=== PATIENT | male | born 1955 | race Caucasian/White ===

== ENCOUNTER 2024-07-08 23:55 | Inpatient (IN) | payer MEDICARE, SELFPAY ==
[2024-07-08 16:20] VITALS: BMI 42.6
[2024-07-08 16:22] VITALS: BP 181/98
[2024-07-08 17:34] LABS: % Basophils 0.2 % (0-2); % Eosinophils 0.2 % (0-6); % Immature Granulocytes 0.7 % (0-0.5); % Lymphocytes 7.3 % (20.5-51.1); % Monocytes 3.3 % (1.7-9.3); % Neutrophils 88.3 % (42.2-75.2); Absolute Immature Granulocytes 0.1 10^3/uL (0-0.05); Absolute Lymphocytes 0.9 10^3/uL (1.2-3.4); Absolute Monocytes 0.4 10^3/uL (0.1-0.6); Absolute Neutrophils 10.7 10^3/uL (1.4-6.5); Hematocrit 49.3 % (39.0-52.0); Hemoglobin 16.3 g/dL (13.0-18.0); Mean Corp Hgb Conc. 33.1 g/dL (33.0-37.0); Mean Corpuscular Hgb 32.7 pg (27.0-31.0); Mean Platelet Volume 10.8 fL (7.4-10.4); Nucleated Red Blood Cells % 0 % (-); Platelet Count 268 10^3/uL (130-400); Red Blood Cell Count 4.98 10^6/uL (4.70-6.10); Red Cell Dist. Width 14.4 % (11.5-14.5); White Blood Cell Count 12.1 10^3/uL (4.8-10.8)
[2024-07-08 17:46] LABS: ALT (SGPT) 21 U/L (0-50); AST (SGOT) 29 U/L (17-59); Albumin 4.5 g/dl (3.5-5.0); Alkaline Phosphatase 110 U/L (38-126); Blood Urea Nitrogen 26 mg/dl (9-20); Calcium 9.6 mg/dl (8.4-10.2); Carbon Dioxide 28 mmol/L (22-30); Chloride 100 mmol/L (98-107); Glucose 159 mg/dl (70-99); Lipase 41 U/L (23-300); Potassium 3.5 mmol/L (3.5-5.1); Sodium 143 mmol/L (135-145); Total Protein 7.7 g/dl (6.3-8.2); eGFR > 60.00
[2024-07-08] MEDS: ZOFRAN 4 MG IV (18:32)
[2024-07-08] MEDS: MORPHINE SULFATE 4 MG IV (18:32)
[2024-07-08 18:43] VITALS: BP 182/88
[2024-07-08 18:57] LABS: Lactic Acid 1.3 mmol/L (0.7-2.0)
--- NOTE | 2024-07-08 19:54 | ED.GENMED ---
History of Present Illness
General
Chief Complaint: Abdominal Pain
Source: patient and significant other
Exam Limitations: none
Time Seen by Provider: 07/08/24 17:23
Nursing documentation reviewed up to this point in time: agreed with
History of Present Illness
History of Present Illness:
Patient is a 69-year-old male with past medical history of liver cancer status post resection with recent recurrence for which she is supposed to start radiation, atrial fibrillation, hypertension, hyperlipidemia, asthma, tobacco use, who presents
to the emergency department accompanied by his for evaluation of abdominal pain that started around 10 AM this morning. Patient reports that it has been constant and severe. Patient reports nausea and a few episodes of vomiting. Patient
reports that his abdomen looks larger than it does normally. Patient reports that his last bowel movement was yesterday and was normal. Patient reports that he has been passing flatus today. Patient denies recent fevers, chills, chest pain,
shortness of breath. Patient denies any dysuria, hematuria, urinary urgency or frequency. Patient reports that he has had pain like this in the past but never had it evaluated as it was always get better over a few hours. Patient reports taking
Tylenol this morning without improvement in his pain.
Past History
Past History
ED Past Medical History: Arrthythmia, Cancer, CHF, HTN and IDDM
ED Past Surgical History: Appendectomy, Cholecystectomy and Orthopedic
Social History
Tobacco: Former smoker
Alcohol: Former
Personal:
Living: with family
Employment: Employed
Review of Systems
Review of Systems
All Other Systems: Not applicable
Constitutional: Reports no symptoms
EENT: Reports no symptoms
Respiratory: Reports no symptoms
Cardiac: Reports no symptoms
ABD/GI: Reports abdominal pain, nausea and vomiting; Denies diarrhea or constipated
: Reports no symptoms
Musculoskeletal: Reports no symptoms
Skin: Reports no symptoms
Neurological: Reports no symptoms
Endocrine: Reports no symptoms
Hematologic/Lymphatic: Reports no symptoms
Psychiatric: Reports no symptoms
Phy Exam
General Physical Exam
General Presentation: well appearing and no apparent distress
General Skin: warm and dry
General Habitus: normal
General Mental: alert
General Hydration: appears well hydrated
ENT Exam
ENT Exam: EOMI, pharynx normal, neck supple and normocephalic
Eye Exam
Eye Exam: PERRL, cornea clear and conjunctiva normal
Cardiovascular Exam
Cardiovascular Exam: regular rate/rhythm, no edema, no murmur and normal peripheral pulses
Pulmonary Exam
Pulmonary Exam: lungs clear, no respiratory distress, no rales, no crackles, no rhonchi, no stridor, no wheezing and no cough
Gastrointestinal Exam
Gastrointestinal Exam: soft, distended, surgical scar and tender (just superior to the umbilicus)
Auscultation of Abdomen: hypoactive
Neurological Exam
Neurological Exam: alert, oriented x3, no motor deficits and speech normal
Musculoskeletal Exam
Musculoskeletal Exam: full ROM and no edema
Skin Exam
Skin Exam: normal color, warm/dry, no rash and no petechia
Psychiatric Exam
Psychiatric Exam: normal mood/affect
Course
Orders/Labs/Results
Orders:
Orders
07/08/24 17:13
Complete Blood Count/With Diff Urgent
Comprehensive Metabolic Panel Urgent
Lipase Urgent
07/08/24 18:20
CT Abd/pelvis W Iv Cont Urgent
Comment:
Reason For Exam: abdominal pain, distention, liver cancer
Morphine Sulfate 4 mg IV NOW STA
Ondansetron Injectable [Zofran] 4 mg IV NOW STA
07/08/24 18:21
CR Chest - 2 Views Urgent
Comment:
Reason For Exam: cough
07/08/24 18:31
Lactic Acid Urgent
07/08/24 21:02
HYDROmorphone [Dilaudid] 1 mg IV NOW STA
07/08/24 23:17
CefTRIAXone [Rocephin] 1,000 mg IV NOW STA
MetroNIDAZOLE [Flagyl] 500 mg PO NOW STA
Abnormal Lab Results
07/08/24
17:13
WBC 12.1 H 10^3/uL
(4.8-10.8)
MCV 99.0 H fL
(80.0-94.0)
MCH 32.7 H pg
(27.0-31.0)
MPV 10.8 H fL
(7.4-10.4)
Abs Immat Gran (auto) 0.1 H 10^3/uL
(0-0.05)
Absolute Neuts (auto) 10.7 H 10^3/uL
(1.4-6.5)
Absolute Lymphs (auto) 0.9 L 10^3/uL
(1.2-3.4)
Immature Gran % 0.7 H %
(0-0.5)
Neutrophils % 88.3 H %
(42.2-75.2)
Lymphocytes % 7.3 L %
(20.5-51.1)
BUN 26 H mg/dl
(9-20)
Glucose 159 H mg/dl
(70-99)
07/08/24 17:13
07/08/24 17:13
Vital Signs
Initial and Last Documented VS:
Initial Vital Signs
Temp Pulse Resp BP Pulse Ox
97.2 F 60 20 181/98 96
07/08/24 16:22 07/08/24 16:22 07/08/24 16:22 07/08/24 16:22 07/08/24 16:22
Last Documented Vital Signs
Temp Pulse Resp BP Pulse Ox
97.2 F 79 22 200/115 93
07/08/24 16:22 07/08/24 20:00 07/08/24 20:00 07/08/24 20:00 07/08/24 20:00
*Critical Care Note
Total Time (30-74mins, 75-104mins- exclusive of procedures): Not Applicable
Update Note
Update Note:
9-year-old male with history of liver CA status post resection but with known recurrence who presents to the emergency department for evaluation of abdominal pain and distention that started this morning and has not improved. Patient notes
associated nausea and vomiting but denies change in his bowel habits. On arrival, patient is hypertensive, afebrile. On exam, patient is in no acute distress, he does have an area of distention and tenderness just superior to the umbilicus
concerning for a possible hernia. Labs were performed while the patient was in the waiting room and are nonactionable. Given the patient's history and presentation, will check CT of the abdomen and pelvis with IV contrast. Will provide the
patient with analgesia, antiemetics, and reassess.
CT notable for hernia without evidence of incarceration or strangulation. However, note made of bowel wall thickening of 21cm segment of probable proximal ileum. Differential diagnosis includes inflammation, infection, and less likely ischemia.
Given normal lactic acid, less likely ischemia. All results were discussed with the patient who would like to go home. However, patient got up to ambulate to the restroom and his pain returned, therefore, he agrees to admission. Will cover with
Rocephin and Flagyl and admit. Patient and his expressed understanding and agreed.
ED Attending Note
-
Portions of this chart may have been created with voice recognition software.� Occasional wrong word or��sound alike� substitutions may have occurred due to the inherent limitations of voice recognition software.
Discharge Plan
Departure
Patient Disposition: Admit
Date of Disposition: 07/08/24
Time of Disposition: 23:18
Presentation/result/management discussed w/ accepting MD/DO: Hospitalist
Patient with high blood pressure during this ER visit?: Yes
Condition: Good
Covid-19: Not Applicable
Discharge Problem:
Ileitis, regional
Prescriptions:
No Action
B-complex with vitamin C 1 CAPLET tablet
1 cap PO DAILY
isosorbide mononitrate 30 mg tablet extended release 24 hr
30 mg PO DAILY
levothyroxine 200 mcg tablet
200 mcg PO DAILY
furosemide 80 MG tablet
80 mg PO BID
folic acid 1 mg Tablet
1 mg PO DAILY
fluticasone propionate 50 mcg/actuation [place],Suspension
1 spray INTRANASAL DAILY
hydralazine 25 mg Tablet
25 mg PO TID
insulin asp prt-insulin aspart [Novolog Mix 70-30FlexPen U-100] 100 unit/mL (70-30) insulin pen
36 unit SC BID
fluticasone propion-salmeterol [Advair Diskus] 250-50 mcg/dose Blister With Device
2 inh INHALATION R BID
acetaminophen [Tylenol] 325 mg Tablet
650 mg PO Q6HPRN PRN (Reason: mild pain)
albuterol sulfate [ProAir HFA] 90 mcg/actuation Hfa Aerosol Inhaler
2 puff INHALATION R Q6HPRN PRN (Reason: sob)
lisinopril 40 mg Tablet
40 mg PO BID
Eliquis 5 mg Tablet
2.5 mg PO BID
Rx Instructions:
07/17/23-patient said he cutshis 5mg tablets in half cause he skin bleeds too much
prednisone 20 mg Tablet
40 mg PO DAILY 3 Days Qty: 6 0RF
metolazone 5 mg Tablet
5 mg PO DAILY Qty: 90 0RF
potassium chloride 20 mEq tablet,ER particles/crystals
40 meq PO BID Qty: 120 0RF
carvedilol 25 mg tablet
12.5 mg PO BID Qty: 0 0RF
ipratropium-albuterol 0.5 mg-3 mg(2.5 mg base)/3 mL Solution For Nebulization
3 ml inhalation R TID Qty: 90 0RF
colchicine 0.6 mg tablet
0.6 mg PO BID Qty: 14 0RF
hydrocodone-acetaminophen 5-300 mg tablet
1 tab PO Q6H PRN (Reason: Pain) Qty: 14 0RF
gabapentin 100 mg capsule
100 mg PO TID Qty: 20 0RF
doxycycline hyclate 100 mg capsule
100 mg PO BID 10 Days Qty: 20 0RF
Referrals:
Russell Nunez PA-C [Family Provider] -
Interventions
Interventions:
*General Assessment Last Done: 07/08/24 16:22
ED- Fall Risk Assessment Last Done: 07/08/24 16:28
BF-Ixpuxr-Dgzjrkwmxx Assessment Last Done: 07/08/24 16:28
Discharge Date and Time
Print Language: MALTESE
[2024-07-08 20:00] VITALS: BP 200/115
[2024-07-08] MEDS: DILAUDID 1 MG IV (21:07)
[2024-07-08] MEDS: FLAGYL 500 MG PO (23:51)
[2024-07-08] MEDS: ROCEPHIN 1000 MG IV (23:51)
--- NOTE | 2024-07-08 23:52 | HPS.HSE ---
Family Physician
-
Family Physician: BLAKE ARDON PA-C
Chief Complaint
-
Abdominal pain and vomiting
History of Present Illness
This is a 69-year-old with past medical history of hepatocellular carcinoma status post liver resection and chemotherapy last in 2022 who recently has recurrence of disease and is pending radiation treatment, atrial fibrillation on anticoagulation,
COPD, CHF, cor pulmonale, insulin-dependent diabetesdiabetes and hypothyroidism who presents to the emergency department with acute episode of right lower quadrant pain.
Patient reports sudden onset of sharp and colicky right lower quadrant pain without any radiation. When he attempted to take p.o. (i.e. he tried to take twice daily to expectation of gas relief) he resulted in immediate emesis. He has been having
emesis with any attempted p.o. intake since then. Patient reported that he had a similar episode of pain about 2 weeks ago which apparently resolved on its own. He reports having intermittent loose stools. He has no stool today. He denies of
tarik diarrhea. He denies fevers or chills. He has a history of cholecystitis and feels this pain reminds him of that. He denies any urinary symptoms. He denies history of bowel obstruction.
He Emergency Department the patient was afebrile, he was hemodynamically stable and in distress due to pain. A had a clear chest x-ray. He had a CT of the abdomen and pelvis which showed circumferential wall thickening in the loop of proximal
small bowel that was 20 cm long. There was a ventral hernia without incarceration.
He had a leukocytosis of 12,000, hemoglobin and platelet counts are within normal limits. Chemistries are within normal limits. LFTs and lipase were within normal limits.
Medical History
Past Medical History
Past Medical History: Reports Arrhythmia (Atrial fibrillation), CHF, COPD, HTN and IDDM
Additional Past Medical History:
Hepatocellular cancer status post surgery and chemo
Past Surgical History: Reports Other
Additional Past Surgical History:
Liver resection
Social History
Tobacco: Former Smoker
Alcohol: Former
Drug: None
Personal:
Living: With Family
Family History
Family History: Not pertinent
Allergies / Home Medications
Allergies reflects when Allergies were last updated in [facility].
Home Medications with original date entered in [facility]
Allergy/Medication List:
Allergies
Allergy/AdvReac Type Severity Reaction Status Date / Time
No Known Allergies Allergy Verified 07/08/24 16:21
Home Medications
furosemide 80 mg tablet 80 mg PO BID Fluid Retention/Swelling 01/17/23
isosorbide mononitrate 30 mg tablet,extended release 24 hr 30 mg PO DAILY Blood Pressure 01/17/23
levothyroxine 200 mcg tablet 200 mcg PO DAILY Thyroid 01/17/23
apixaban 5 mg tablet (Eliquis) 5 mg PO BID atrial fibrillation 07/17/23
fluticasone 250 mcg-salmeterol 50 mcg/dose blistr powdr for inhalation (Advair Diskus) 2 inh inhalation R BIDPRN PRN sob/wheezing 07/17/23
lisinopril 40 mg tablet 40 mg PO BID Blood Pressure 07/17/23
carvedilol 25 mg tablet 12.5 mg (1/2 x 25 mg) PO BID Blood Pressure #0 tabs 07/21/23
albuterol sulfate 90 mcg/actuation aerosol inhaler 2 puff inhalation R Q6HPRN PRN sob/wheezing 07/08/24
insulin glargine 100 unit/mL (3 mL) subcutaneous pen (Lantus Solostar U-100 Insulin) 38 unit SC HS 07/08/24
ipratropium 0.5 mg-albuterol 3 mg (2.5 mg base)/3 mL nebulization soln 3 ml inhalation R TIDPRN PRN sob/wheezing 07/08/24
Review of Systems
-
Constitutional: Reports No Symptoms
EENT: Reports No Symptoms
Respiratory: Reports No Symptoms
Cardiac: Reports No Symptoms
Abdomen/GI: Reports Abdominal Pain and Vomiting
: Reports No Symptoms
Musculoskeletal: Reports No Symptoms
Skin: Reports No Symptoms
Neurological: Reports No Symptoms
Endocrine: Reports No Symptoms
Hematologic/Lymphatic: Reports No Symptoms
Psych: Reports No Symptoms
Physical Exam
Vital Signs
Vital Signs
Temp Pulse Resp BP Pulse Ox
97.2 F 79 22 200/115 93
07/08/24 16:22 07/08/24 20:00 07/08/24 20:00 07/08/24 20:00 07/08/24 20:00
Physical Exam
General: Conversant, Appears in Distress and Appears Chronically Ill
HEENT: NormoCephalic, Anicteric, Moist mucous membranes and Atraumatic
Respiratory: Clear
Cardiac: S1/S2 and Irregular Rhythm
GI: Soft and Tender (Data formation right lower quadrant)
Rectal: Deferred by Provider
Genito-urinary: Deferred by me
Musculoskeletal: No Clubbing, No Cyanosis, Edema, Left Lower Extremity (trace) and Edema, Right Lower Extremity (trace)
Skin: Warm
Neuro: AO x 3
Hematologic/Lymphatic: No Lymphadenopathy
Psych: Calm
Laboratory Results
-
07/08/24 17:13
07/08/24 17:13
Laboratory Results
Lactic Acid 1.3 mmol/L (0.7-2.0) 07/08/24 18:31
Total Bilirubin 1.0 mg/dl (0.2-1.3) 07/08/24 17:13
AST 29 U/L (17-59) 07/08/24 17:13
ALT 21 U/L (0-50) 07/08/24 17:13
Alkaline Phosphatase 110 U/L (38-126) 07/08/24 17:13
Lipase 41 U/L (23-300) 07/08/24 17:13
Data Reviewed
-
Diagnostic Radiology: Image Personally Visualized and interpreted
CT Scan: Report Reviewed by me
Lab Data: Labs Reviewed by me
Old Records: Reviewed
Impression/Plan
-
IMPRESSION:
69-year-old with multiple comorbidities who is here for abdominal pain and was found to have inflammatory changes in the proximal ileum consistent with likely infectious or ischemic process. No obstruction
PLAN:
1. Ileitis - Presumed inflammatory or ischemic etiology. Denies recent chemotherapy for HCC. Non-toxic appearing and hemodynamically stable. Leukocytosis and moderate to severe pain with vomiting. No obstruction on CT.
- admit to med/surg
- NPO for now except sips of meds and water, advance diet as tolerated after GI consult
- IV ceftriaxone/flagyl
- hold fluids
- pain control and antiemetics
- gi consult
2. DM II
- hold lantus while npo
- sliding scale insulin q 6
3. AFIb
- continue apixaban and carvedilol
4. CHF
- continue lasix for now, monitor bp
- continue imdur, lisinopril
- weight daily
6. COPD - stable
- continu ehome inhalers
7. hypothyroid
- continue home levothyroxine
DDVT PPx - on apixaban
Code statu s- Full Code
[2024-07-09] VITALS: BP 144/102
[2024-07-09] MEDS: DILAUDID 1 MG IV ×4 (00:05→20:25)
[2024-07-09 01:00] VITALS: BP 167/87
[2024-07-09 01:32] VITALS: BP 167/99; BMI 41.9
[2024-07-09 01:43] VITALS: BMI 41.9
[2024-07-09] MEDS: LASIX PO (01:49)
[2024-07-09] MEDS: COREG 12.5 MG PO ×3 (01:56→20:00)
[2024-07-09] MEDS: ELIQUIS 5 MG PO ×3 (01:57→20:01)
[2024-07-09] MEDS: ZESTRIL 40 MG PO ×3 (01:57→20:00)
--- NOTE | 2024-07-09 02:40 | PTCARENOTE ---
Received pt from ED into room 213. Pt able to stand and ambulate with stand by assist. Reporting 8/10 pain throughout abdomen. Round, obese, distended, tender abdomen. AAOx3. VSS. See assessment. Resting comfortably in bed, call dumont within reach.
[2024-07-09] MEDS: DILAUDID 0.5 MG IV ×3 (02:43→09:34)
[2024-07-09 05:43] LABS: Glucose - Point of Care 147 mg/dl (70-99)
[2024-07-09 06:00] VITALS: BMI 41.9
[2024-07-09] MEDS: SYNTHROID 200 MCG PO (06:02)
[2024-07-09 06:48] LABS: Hematocrit 51.5 % (39.0-52.0); Mean Platelet Volume 10.7 fL (7.4-10.4); Platelet Count 247 10^3/uL (130-400); Red Blood Cell Count 5.15 10^6/uL (4.70-6.10); Red Cell Dist. Width 14.5 % (11.5-14.5); White Blood Cell Count 15.3 10^3/uL (4.8-10.8)
[2024-07-09 07:20] LABS: Blood Urea Nitrogen 30 mg/dl (9-20); Calcium 9.6 mg/dl (8.4-10.2); Carbon Dioxide 30 mmol/L (22-30); Chloride 102 mmol/L (98-107); Estimated Creatinine Clearance 99 ml/min; Glucose 147 mg/dl (70-99); Potassium 3.7 mmol/L (3.5-5.1); Sodium 143 mmol/L (135-145); eGFR > 60.00
--- NOTE | 2024-07-09 07:38 | W.PN.HOSP.TC ---
Today's Communication/Plan
-
gentle IV hydration support
NGT as per GI surgery
pain control
hold lasix while NPO
Assessment / Plan
Assessment / Plan
Physical Exam
General: Conversant, Appears in Distress and Appears Chronically Ill
HEENT: NormoCephalic, Anicteric, Moist mucous membranes and Atraumatic
Respiratory: Clear
Cardiac: S1/S2 and Irregular Rhythm
GI: Soft and Tender
Musculoskeletal: No Clubbing, No Cyanosis, Edema, Left Lower Extremity (trace) and Edema, Right Lower Extremity (trace)
Skin: Warm
Neuro: AO x 3
Hematologic/Lymphatic: No Lymphadenopathy
Psych: Calm
69-year-old with multiple comorbidities who is here for abdominal pain and was found to have inflammatory changes in the proximal ileum consistent with likely infectious or ischemic process. No obstruction
PLAN:
1. Ileitis - Presumed inflammatory or ischemic etiology. Denies recent chemotherapy for HCC. Non-toxic appearing and hemodynamically stable. Leukocytosis and moderate to severe pain with vomiting. No obstruction on CT.
Possibly related to hernia
- NPO
-GI Surgery evals appreciated
- IV ceftriaxone/flagyl
- gentle IV hydration
-NGT
- pain control and antiemetics
2. DM II
- hold lantus while npo
- sliding scale insulin q 6
3. AFIb
- continue apixaban and carvedilol
4. CHF
- hold Lasix while NPO, gentle IV hydration
- continue imdur, lisinopril
- weight daily
6. COPD - stable
- continu ehome inhalers
7. hypothyroid
- continue home levothyroxine
DDVT PPx - on apixaban
Code statu s- Full Code
I spent a total of 50 minutes with the patient or on the floor. More than 50% of this time involved counseling and coordination of care.
Anticipated Discharge: > 48 hours
Subjective/Interval History
-
Date of Service: July 09, 2024
pain controlled at this time. Continues to report epigastric tenderness. NGT in place with bilious output noted.
Objective Data
-
Labs:
Laboratory Results
07/09/24
05:50
WBC 15.3 H
Hgb 17.0
Hct 51.5
Plt Count 247
Sodium 143
Potassium 3.7
Chloride 102
Carbon Dioxide 30
BUN 30 H
Creatinine 0.9
Glucose 147 H
Calcium 9.6
Vital Signs:
Vital Signs
Temp Pulse Resp BP Pulse Ox
98.7 F 84 22 167/99 95
07/09/24 01:32 07/09/24 01:57 07/09/24 01:32 07/09/24 01:57 07/09/24 05:50
[2024-07-09 07:40] VITALS: BP 150/90
[2024-07-09] MEDS: IMDUR (EXTENDED RELEASE) 30 MG PO (09:04)
[2024-07-09] MEDS: LASIX 80 MG PO (09:04)
[2024-07-09] MEDS: FLAGYL 500 MG PO ×2 (09:04→16:22)
--- NOTE | 2024-07-09 09:10 | CON.GI ---
Addendum entered and electronically signed by Madelaine Washington Do, MD 07/09/24 11:18:
I saw and examined the patient.
The PARTS SPECIALIST's note was reviewed and I agree with the note.
Comment: Ok is a 69yo M with h/o cirrhosis complicated by HCC s/p resection 2019 followed by chemo at [place] who was admitted for abd pain. GI consulted. Pain is acute with vomiting. Vitals reviewed exam notable for large surgical scar and
hernia. Labs reviewed Imaging with air fluid level in small bowel and small bowel thickening with large loops of bowel into abd hernia.
Impression
- Acute abd pain with N/V
Suspect related to small bowel in large abd hernia/pannus
- Cirrhosis
- H/o HCC s/p resection and chemo
- Obesity
- Afib on eliquis
- Asthma
- HTN
- s/p CYY
Recommendations
- NGT placed with small billious output. C/w to wall suction and monitor output
- C/w PPI IV
- Monitor stool output
- Consulted surgery appreciate recs
- NPO for now, diet and future imaging per surgery
At this juncture will sign off please call for questions
Original Note:
Consultation
-
Date/Time Consultation Requested: 07/09/2024 0117
Date/Time Consultation Performed: 07/09/24 0910
Requesting Provider: ARY Jackson
Performing Provider: Dr. Larose/ARY Suarez
Reason for Consultation: diverticulitis
Medical History
Chief Complaint / HPI
Chief Complaint: abdominal pain
History of Present Illness:
69 y/o with cirrhosis with HCC liver lesion with resection in 2019 followed by [facility]. Who has been on been on Atezolizumab(tecentriq)/bevacizumab(Avastin) therapy in the past (2022) with recurrence who is supposed to start XRT, asthma,
hyperlipidemia, hypertension, atrial fibrillation on Eliquis, COPD, CHF, cor pulmonale and hypothyroidism and diabetes who presents to the emergency room with acute onset of lower abdominal pain starting at 10 AM yesterday. The patient states that
he had a similar episode approximately 5 weeks ago that lasted approximately 4 hours and resolved spontaneously. The patient states that he got up yesterday had a yogurt in the morning and within an hour or 2 started with dull mid lower abdomen
abdominal discomfort that he describes as sharp with twisting and turning. Pain medication makes better. He states that in the past beer has made his pain go away so he sent his out to get him beer. He states that he drank 1 beer and vomited
this up. So he tried to drink a second beer and promptly vomited this up as well. At that point he decided to come to the emergency room for further help. The patient states he continues to be in the same amount of pain that he was in yesterday.
He is passing flatus. He has not had a bowel movement. He does state that he had looser bowel movements on Monday. He had no difficulty eating or drinking on Monday. He does not remember eating anything that did not taste right. He did recently
resolved from bronchitis he was not treated with any antibiotics. He did not remember taking any cold preparations or steroids. He was recently taking ibuprofen up until a week ago where he was taking upwards of 1200 mg daily for over 10 days for
regular 'aches and pains'. As he was doing yard work. He has remained afebrile here. Lactic acid was 1.3. WBC count 15.3 up from 12.1, hemoglobin 17.0, hematocrit 51.3, platelets 247, sodium 143, potassium 3.7, chloride 102, CO2 30, BUN 30,
creatinine 0.9, glucose 147, total bilirubin 1.0, AST 29, ALT 21, alk phos 110, lipase 41. Chest x-ray clear. CT abdomen pelvis with oral and IV contrast shows abnormal moderate bowel wall thickening of the 21 segment of probable proximal ileum.
Small bowel containing ventral hernia. Mild ascites about the spleen. Patient with significant abdominal discomfort holding his abdomen in the area of hernia.
Past Medical History
Past Medical History: Arrhythmias (afib on Eliquis), Cancer (heptocellular CA with Li-rads4 liesion in 2019 and elevated AFP. ), CHF, HTN, NIDDM and Other (s/p fall with shoulder injury in January 2023, cirrhosis with hx prior heavy ETOH use, obesity,
tobacco abuse, chest wall hematoma)
Past Surgical History: Appendectomy, Cholecystectomy and Other (liver lesion resection, groin cyst removal)
Social History
Tobacco: Smoker (1 PPD)
Alcohol: Occasional
Drug: None
Personal:
Living: With Family
Employment: Retired
Family History
Family History: Other (no family hx colon cA)
Allergies / Home Medications
Allergy/AdvReac Type Severity Reaction Status Date / Time
No Known Allergies Allergy Verified 07/08/24 16:21
�Medication �Instructions �Recorded
furosemide 80 mg tablet 80 mg PO BID Fluid 01/17/23
Retention/Swelling
isosorbide mononitrate 30 mg 30 mg PO DAILY Blood Pressure 01/17/23
tablet,extended release 24 hr
levothyroxine 200 mcg tablet 200 mcg PO DAILY Thyroid 01/17/23
apixaban 5 mg tablet (Eliquis) 5 mg PO BID atrial fibrillation 07/17/23
fluticasone 250 mcg-salmeterol 50 2 inh inhalation R BIDPRN PRN 07/17/23
mcg/dose blistr powdr for sob/wheezing
inhalation (Advair Diskus)
lisinopril 40 mg tablet 40 mg PO BID Blood Pressure 07/17/23
carvedilol 25 mg tablet 12.5 mg (1/2 x 25 mg) PO BID Blood 07/21/23
Pressure #0 tabs
albuterol sulfate 90 mcg/actuation 2 puff inhalation R Q6HPRN PRN 07/08/24
aerosol inhaler sob/wheezing
insulin glargine 100 unit/mL (3 38 unit SC HS Diabetes 07/08/24
mL) subcutaneous pen (Lantus
Solostar U-100 Insulin)
ipratropium 0.5 mg-albuterol 3 mg 3 ml inhalation R TIDPRN PRN 07/08/24
(2.5 mg base)/3 mL nebulization sob/wheezing
soln
Review of Systems
-
All other systems: A 12 pt ROS was Negative except as stated above in HPI
Vital Signs
Temp Pulse Resp BP Pulse Ox
97.8 F 78 16 150/90 91
07/09/24 07:40 07/09/24 07:40 07/09/24 07:40 07/09/24 07:40 07/09/24 07:40
Physical Exam
Exam
General: Other (Uncomfortable holding abdomen at site of hernia)
HEENT: Anicteric
Respiratory: Clear
Cardiac: Irregular Rhythm
GI: Soft, Normal Bowel Sounds, Tender (2 areas of tenderness 1 is just below midline scar at hernia, second is below umbilicus at site lower pannus midline) and Other (Obese abdomen, large right side liver)
Musculoskeletal: No Edema
Skin: Warm and Dry
Neuro: AO x 3
Psych: Calm
Results
WBC 15.3 10^3/uL (4.8-10.8) H 07/09/24 05:50
Hgb 17.0 g/dL (13.0-18.0) 07/09/24 05:50
Hct 51.5 % (39.0-52.0) 07/09/24 05:50
MCV 100.0 fL (80.0-94.0) H 07/09/24 05:50
Plt Count 247 10^3/uL (130-400) 07/09/24 05:50
Absolute Neuts (auto) 10.7 10^3/uL (1.4-6.5) H 07/08/24 17:13
Sodium 143 mmol/L (135-145) 07/09/24 05:50
Potassium 3.7 mmol/L (3.5-5.1) 07/09/24 05:50
Chloride 102 mmol/L (98-107) 07/09/24 05:50
Carbon Dioxide 30 mmol/L (22-30) 07/09/24 05:50
BUN 30 mg/dl (9-20) H 07/09/24 05:50
Creatinine 0.9 mg/dL (0.7-1.3) 07/09/24 05:50
Calcium 9.6 mg/dl (8.4-10.2) 07/09/24 05:50
Total Bilirubin 1.0 mg/dl (0.2-1.3) 07/08/24 17:13
AST 29 U/L (17-59) 07/08/24 17:13
ALT 21 U/L (0-50) 07/08/24 17:13
Alkaline Phosphatase 110 U/L (38-126) 07/08/24 17:13
Lipase 41 U/L (23-300) 07/08/24 17:13
Diagnostic Image Results:
CT abdomen and pelvis with oral and IV contrast:
Lung Bases: There is mild dependent change in left lower lung0.
Bone: Osseous structures of the abdomen and pelvis show mild degenerative disease.
Abdomen and pelvis: The liver, spleen, gallbladder and pancreas are unremarkable aside from postsurgical change about the liver and mild ascites about the spleen.. The adrenal glands and kidneys are unremarkable. The abdominal aorta is normal
caliber. There is mild atherosclerotic vascular disease. No significant lymphadenopathy is noted. Bowel loops are normal caliber. The terminal ileum is unremarkable. The appendix is not visualized. There is moderate fecal material throughout the
colon.
There is a small bowel containing ventral hernia. This is at the level of the umbilicus. It measures approximately 13.3 x 4.2 cm. There is mild fluid within the hernia. This has decreased. There is no bowel wall thickening of the loops within the
hernia.
However, there is an abnormal loop of small bowel in the mid left abdomen with moderate circumferential wall thickening. This loop measures approximately 21 cm in length. This is seen best about images 46 through 67. These each measure 2.8 cm in
maximum diameter.
The urinary bladder is unremarkable.
Prior GI Procedures:
EGD: Never had endoscopy
Colonoscopy: Never had colonoscopy
Assessment / Plan
-
69 y/o with cirrhosis with HCC liver lesion with resection in 2019 followed by [facility]. Who has been on been on Atezolizumab(tecentriq)/bevacizumab(Avastin) therapy in the past (2022) with recurrence who is supposed to start XRT, asthma,
hyperlipidemia, hypertension, atrial fibrillation on Eliquis, COPD, CHF, cor pulmonale and hypothyroidism and diabetes who presents to the emergency room with acute onset of lower abdominal pain starting at 10 AM yesterday. The patient states that
he had a similar episode approximately 5 weeks ago that lasted approximately 4 hours and resolved spontaneously. The patient states that he got up yesterday had a yogurt in the morning and within an hour or 2 started with dull mid lower abdomen
abdominal discomfort that he describes as sharp with twisting and turning. Pain medication makes better. He states that in the past beer has made his pain go away so he sent his out to get him beer. He states that he drank 1 beer and vomited
this up. So he tried to drink a second beer and promptly vomited this up as well. At that point he decided to come to the emergency room for further help. The patient states he continues to be in the same amount of pain that he was in yesterday.
He is passing flatus. We are asked to evaluate for ileitis seen on CT imaging. Patient has symptoms associated with small bowel within hernia. He points to area where small bowel will be entrapped. Patient is passing flatus however is in a
significant amount of pain. Patient has been started on ceftriaxone and Flagyl. Surgery has been consulted. He remains on Eliquis at this time.
Impression:
Abdominal pain
Small bowel containing ventral hernia
Abnormal loop of small bowel left mid abdomen with circumferential wall thickening
Leukocytosis
HCC status posttreatment with chemotherapy (2022) with recurrence awaiting XRT
Plan:
-Surgical consult. Discussed with Dr. Jesus
-NGT to be placed to LIS
-Continue Abx
-Trend labs
-Further recommendations to be forthcoming
-
-
Thank you for consultation and allowing me to participate in the patient's care. Please call the immigration paralegal GI physician during the after hours with any questions or concerns.
--- NOTE | 2024-07-09 11:37 | CON.GS ---
Medical History
-
Chief Complaint: Abdominal pain
History of Present Illness:
Patient is a 69 yo M with a PMH notable for morbid obesity, HTN, HLD, CHF, A-fib (on Eliquis, LD 11 AM), IDDM, COPD (on home oxygen), active tobacco use (1 PPD), cirrhosis c/b HCC s/p open partial hepatectomy at [place] in 2019, chest wall
hematoma s/p evacuation, s/p open appendectomy, and s/p laparoscopic cholecystectomy. Mr. Gomez presents with acute onset of central abdominal pain. Symptoms began yesterday at approximately 10 AM. He states that he had a similar episode
approximately 1 month ago which lasted several hours before resolving. Currently he states that his pain is improved, but not completely resolved. Associated nausea and vomiting. He attempted to self treat his symptoms by chugging 2 consecutive
beers; symptoms did not improve and only induced more vomiting. Last bowel movement was on Monday. Last flatus was yesterday. Believes he has had this hernia for quite some time.
Of note, he has recently been diagnosed with small HCC recurrence during follow-up at [place]. 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
Past Medical History
Past Medical History: Arrhythmias (A-fib (on Eliquis)), Cancer (HCC), CHF, COPD, HTN, Hypercholesterolemia, IDDM and Other (Obesity, chest wall hematoma s/p evacuation on the LEFT)
Past Surgical History: Appendectomy, Cholecystectomy and Other (Open partial hepatectomy)
Social History
Tobacco: Smoker (1 PPD)
Alcohol: Occasional
Drug: None
Personal:
Living: With Family
Employment: Retired
Family History
Family History: Reviewed & Not Pertinent
Allergies / Home Medications
Allergy/AdvReac Type Severity Reaction Status Date / Time
No Known Allergies Allergy Verified 07/08/24 16:21
�Medication �Instructions �Recorded �Confirmed �Type
furosemide 80 mg tablet 80 mg PO BID Fluid 01/17/23 07/08/24 History
Retention/Swelling
isosorbide mononitrate 30 mg 30 mg PO DAILY Blood Pressure 01/17/23 07/08/24 History
tablet,extended release 24 hr
levothyroxine 200 mcg tablet 200 mcg PO DAILY Thyroid 01/17/23 07/08/24 History
apixaban 5 mg tablet (Eliquis) 5 mg PO BID atrial fibrillation 07/17/23 07/08/24 History
fluticasone 250 mcg-salmeterol 50 2 inh inhalation R BIDPRN PRN 07/17/23 07/08/24 History
mcg/dose blistr powdr for sob/wheezing
inhalation (Advair Diskus)
lisinopril 40 mg tablet 40 mg PO BID Blood Pressure 07/17/23 07/08/24 History
carvedilol 25 mg tablet 12.5 mg (1/2 x 25 mg) PO BID Blood 07/21/23 07/08/24 Rx
Pressure #0 tabs
albuterol sulfate 90 mcg/actuation 2 puff inhalation R Q6HPRN PRN 07/08/24 07/08/24 History
aerosol inhaler sob/wheezing
insulin glargine 100 unit/mL (3 38 unit SC HS Diabetes 07/08/24 07/08/24 History
mL) subcutaneous pen (Lantus
Solostar U-100 Insulin)
ipratropium 0.5 mg-albuterol 3 mg 3 ml inhalation R TIDPRN PRN 07/08/24 07/08/24 History
(2.5 mg base)/3 mL nebulization sob/wheezing
soln
Review of Systems
-
A 10 point review of systems was completed, and was negative except as per HPI.
Physical Exam
Vital Signs
Temp Pulse Resp BP Pulse Ox
97.8 F 78 16 150/90 91
07/09/24 07:40 07/09/24 07:40 07/09/24 07:40 07/09/24 09:03 07/09/24 09:12
07/08/24 07/09/24 07/10/24
06:59 06:59 06:59
Actual Weight 121.2 kg
Body Mass Index (BMI) 41.9
Lab Results
07/09/24 05:50
07/09/24 05:50
WBC 15.3 10^3/uL (4.8-10.8) H 07/09/24 05:50
Hgb 17.0 g/dL (13.0-18.0) 07/09/24 05:50
Hct 51.5 % (39.0-52.0) 07/09/24 05:50
Plt Count 247 10^3/uL (130-400) 07/09/24 05:50
Abs Immat Gran (auto) 0.1 10^3/uL (0-0.05) H 07/08/24 17:13
Neutrophils % 88.3 % (42.2-75.2) H 07/08/24 17:13
Physical Exam
General: Well Developed, Well Nourished and No Apparent Distress
HEENT: Normocephalic and Anicteric
Respiratory: Accessory Resp Muscle Use
Cardiac: Irregular Rhythm
GI: Soft, Non Distended ( Exam limited by obesity), Tender (Upper mid abdomen, mild erythema, soft, partially reducible hernia), Incisions ( Transverse RUQ, para-midline RLQ, well-healed) and Other (No diffuse peritonitis)
Skin: Warm and Dry
Neuro: Nonfocal/Grossly Intact
Data Reviewed
-
CT Scan: Image Personally Visualized and interpreted and Report Reviewed by me
Labs: Labs Reviewed by me
Old Records: Reviewed
Assessment / Plan
-
Patient is a 69 yo M p/w symptomatic ventral incisional hernia
Difficult to ascertain strangulation or incarceration due to obesity, though partially reducible and soft. Radiographic imaging demonstrates a widemouthed hernia, with evidence of enteritis likely from bowel rubbing on fascial defect, but no
evidence of obstruction, fluid within the hernia sac, pneumatosis, or free air. The natural history and pathophysiology of ventral hernias was discussed. Patient is a poor operative candidate for multiple reasons. Currently he is actively
anticoagulated with a recent dose of Eliquis this morning - this is the principal reason as to why he should not undergo an operative intervention at this time. Additionally, he is at increased risk for operative complications including wound
infections as it relates to his morbid obesity, active smoking, and diabetes. He is also at significantly increased risk for hernia recurrence. Recommend medical management with bowel rest, NGT decompression, and antibiotics at this time. Would
strongly consider repeat CT scan with oral and IV contrast in 24 hours, to better assess the need for a more urgent repair. All questions answered.
-- NPO, IVF, NGT decompression
-- Abx: Zosyn for translocation coverage
-- Tentative plan for repeat CT scan with PO and IV contrast in 24 hours
[2024-07-09] MEDS: NSS (PRESERVATIVE FREE) 10 ML IV (11:56)
[2024-07-09] MEDS: PROTONIX IV 40 MG IV (11:56)
[2024-07-09 12:25] LABS: Glucose - Point of Care 143 mg/dl (70-99)
[2024-07-09] MEDS: NSS 1000 IV (14:21)
--- NOTE | 2024-07-09 14:37 | CM ---
Reviewed the chart notes and spoke with the patient at the bedside. The patient resides with his spouse in a one story home with no steps to enter. The patient has home O2, provider unknown. The patient reports no VN/SNF in the past. The patient
confirmed his [facility] of choice [facility]. The patient currently has a NGT to [facility]. CM continues to be available to patient/family and is monitoring medical plan for needs at discharge.
Plan: Discharge plans will depend on the patient's progress.
[2024-07-09 15:02] VITALS: BP 97/48
[2024-07-09 18:04] LABS: Glucose - Point of Care 127 mg/dl (70-99)
[2024-07-09 23:11] VITALS: BP 129/73
[2024-07-10] VITALS (7 sets, daily range): BP systolic 100–153; BP diastolic 47–78; BMI 41.4
[2024-07-10 00:12] LABS: Glucose - Point of Care 133 mg/dl (70-99)
[2024-07-10] MEDS: ROCEPHIN 1000 MG IV ×2 (00:20→23:28)
[2024-07-10] MEDS: FLAGYL 500 MG PO ×4 (00:20→23:27)
[2024-07-10] MEDS: STERILE WATER FOR INJECTION 10 ML IV ×2 (00:20→23:28)
[2024-07-10] MEDS: DILAUDID 1 MG IV ×6 (00:25→21:41)
[2024-07-10] MEDS: NSS 1000 IV ×2 (04:43→19:47)
--- NOTE | 2024-07-10 04:52 | DOWNTIME ---
There was a [facility] Client Continuous Still Operator Downtime on 07/10/2024 from 0100 to 07/10/2024 at 0355. Downtime documentation of patient's care, including medication administrations, has been reconciled in the electronic record per guidelines. Refer to the
patient's paper chart under the miscellaneous tab to see printed paper medication records and downtime forms.
[2024-07-10] MEDS: SYNTHROID 200 MCG PO (05:59)
[2024-07-10 06:04] LABS: Glucose - Point of Care 142 mg/dl (70-99)
[2024-07-10 06:59] LABS: Hematocrit 49.4 % (39.0-52.0); Hemoglobin 16.3 g/dL (13.0-18.0); Mean Corpuscular Volume 102.9 fL (80.0-94.0); Mean Platelet Volume 10.5 fL (7.4-10.4); Platelet Count 221 10^3/uL (130-400); Red Cell Dist. Width 14.6 % (11.5-14.5); White Blood Cell Count 13.7 10^3/uL (4.8-10.8)
--- NOTE | 2024-07-10 07:25 | W.PN.HOSP.TC ---
Today's Communication/Plan
-
diet NGT as per surgery
pain control
abx
Assessment / Plan
Assessment / Plan
Physical Exam
General: Conversant, Appears in Distress and Appears Chronically Ill
HEENT: NormoCephalic, Anicteric, Moist mucous membranes and Atraumatic
Respiratory: Clear
Cardiac: S1/S2 and Irregular Rhythm
GI: Soft and Tender
Musculoskeletal: No Clubbing, No Cyanosis, Edema, Left Lower Extremity (trace) and Edema, Right Lower Extremity (trace)
Skin: Warm
Neuro: AO x 3
Hematologic/Lymphatic: No Lymphadenopathy
Psych: Calm
69-year-old with multiple comorbidities who is here for abdominal pain and was found to have inflammatory changes in the proximal ileum consistent with likely infectious or ischemic process. No obstruction
PLAN:
1. Ileitis - Presumed inflammatory or ischemic etiology. Denies recent chemotherapy for HCC. Non-toxic appearing and hemodynamically stable. Leukocytosis and moderate to severe pain with vomiting. No obstruction on CT.
Possibly related to hernia
-GI Surgery evals appreciated
- IV ceftriaxone/flagyl
- gentle IV hydration
-NGT diet as per surgery
- pain control and antiemetics
2. DM II
- hold lantus while npo
- sliding scale insulin q 6
3. AFIb
- continue carvedilol
-Eliquis placed on hold as per surgery
4. CHF
- gentle IV hydration, dc when oral intake improves
- continue imdur, lisinopril
- weight daily
6. COPD - stable
- continue home inhalers
7. hypothyroid
- continue home levothyroxine
DDVT PPx - on apixaban
Code statu s- Full Code
I spent a total of 50 minutes with the patient or on the floor. More than 50% of this time involved counseling and coordination of care.
Anticipated Discharge: 24 - 48 hours
Subjective/Interval History
-
Date of Service: July 10, 2024
No acute distress. Denies nausea. Pain controlled with current pain regimen
Objective Data
-
Labs:
Laboratory Results
07/10/24
06:19
WBC 13.7 H
Hgb 16.3
Hct 49.4
Plt Count 221
Sodium Pending
Potassium Pending
Chloride Pending
Carbon Dioxide Pending
BUN Pending
Creatinine Pending
Glucose Pending
Calcium Pending
Vital Signs:
Vital Signs
Temp Pulse Resp BP Pulse Ox
98.5 F 97 18 105/62 97
07/10/24 03:20 07/10/24 03:20 07/10/24 03:20 07/10/24 03:20 07/10/24 03:20
I&O
07/09/24 07/10/24 07/11/24
06:59 06:59 06:59
Intake Total 2445 / 2445
Output Total 1220 / 1220
Balance 1225 / 1225
[2024-07-10 08:04] LABS: Blood Urea Nitrogen 34 mg/dl (9-20); Carbon Dioxide 28 mmol/L (22-30); Chloride 104 mmol/L (98-107); Estimated Creatinine Clearance 89 ml/min; Glucose 140 mg/dl (70-99); Potassium 3.5 mmol/L (3.5-5.1); Sodium 147 mmol/L (135-145); eGFR > 60.00
[2024-07-10] MEDS: ZESTRIL 40 MG PO (09:04)
[2024-07-10] MEDS: ELIQUIS 5 MG PO ×2 (09:04→21:13)
[2024-07-10] MEDS: COREG 12.5 MG PO (09:04)
[2024-07-10] MEDS: NSS (PRESERVATIVE FREE) 10 ML IV (09:05)
[2024-07-10] MEDS: PROTONIX IV 40 MG IV (09:05)
[2024-07-10] MEDS: IMDUR (EXTENDED RELEASE) 30 MG PO (09:05)
[2024-07-10 10:00] LABS: Iron 57 ug/dl (49-181)
[2024-07-10 10:10] LABS: Percent Saturation 19 % (20-50); Total Iron Binding Capacity 300 ug/dl (261-462)
[2024-07-10 11:30] LABS: Folate 14.8 ng/ml (2.76-20); Vitamin B12 397 pg/ml (239-931)
[2024-07-10 11:41] LABS: Glucose - Point of Care 139 mg/dl (70-99)
--- NOTE | 2024-07-10 12:50 | W.PN.GS2 ---
Today's Communication / Plan
-
NGT clamp trial
Empiric IV abx
Hold eliquis
Assessment / Plan
-
Patient is a 69 yo M p/w symptomatic ventral incisional hernia
Difficult to ascertain strangulation or incarceration due to obesity, though partially reducible and soft.
CT demonstrates a widemouthed hernia, with evidence of enteritis likely from bowel rubbing on fascial defect, but no evidence of obstruction, fluid within the hernia sac, pneumatosis, or free air.
Last dose of Eliquis yesterday morning (07/09)
AFVSS, WBC trending down. He is clinically improving with less pain today and passing flatus. He is hungry. Will defer rpt CT as long as improvement continues.
-- NGT clamp trial
-- Abx: Zosyn for translocation coverage
-- Cont to hold eliquis
-- Serial abd exams
-- Ambulate
Subjective Data
-
Date of Service: July 10, 2024
Improving, less pain. Denies n/v with NGT to suction. Taking a lot of ice water PO, c/o throat irritation from tube. Passing flatus.
Objective Data
-
Intake and Output
07/09/24 07/10/24 07/11/24
06:59 06:59 06:59
Intake Total 2445 / 2445
Output Total 1220 / 1220
Balance 1225 / 1225
Intake:
Oral fluids 480 / 480
IV fluids (Total) 1190 / 1190
Amount instilled into GI Tube ( 775 / 775
Total)
[place] Sump 775 / 775
Output:
Gastrointestinal tube output ( 350 / 350
Total)
[place] Sump 350 / 350
Urine, Voided 870 / 870
Other:
Number of approximated MODERATE 2
amounts of urine
Vital Signs
Temp Pulse Resp BP Pulse Ox
98.2 F 89 18 153/78 91
07/10/24 07:45 07/10/24 07:45 07/10/24 07:45 07/10/24 07:45 07/10/24 09:00
Lab Results
07/10/24 06:19
07/10/24 06:19
Calcium 9.0 mg/dl (8.4-10.2) 07/10/24 06:19
Total Bilirubin 1.0 mg/dl (0.2-1.3) 07/08/24 17:13
AST 29 U/L (17-59) 07/08/24 17:13
ALT 21 U/L (0-50) 07/08/24 17:13
Alkaline Phosphatase 110 U/L (38-126) 07/08/24 17:13
Total Protein 7.7 g/dl (6.3-8.2) 07/08/24 17:13
Albumin 4.5 g/dl (3.5-5.0) 07/08/24 17:13
Physical Exam
-
Gen: NAD
Abd: soft, obese, soft, mild ttp, difficult to appreciate fascial defect 2/2 obesity
--- NOTE | 2024-07-10 13:31 | CM ---
Reviewed the chart notes. NGT clamp trial today. CM continues to be available to patient/family and is monitoring medical plan for needs at discharge.
Plan: Discharge plans will depend on the patient's progress.
[2024-07-10 17:54] LABS: Glucose - Point of Care 125 mg/dl (70-99)
[2024-07-10] MEDS: COREG PO (21:09)
[2024-07-10] MEDS: ZESTRIL PO (21:09)
--- NOTE | 2024-07-10 21:09 | PTCARENOTE ---
Contacted house provider via [facility] about pt's BP= 104/49, HR= 80. Pt due to get scheduled 12.5mg coreg and 40mg lisinopril. Yesterday, BPs were 167/99 and 150/90. Pt currently asymptomatic. Rechecked BP in 1hr per provider request and BP= 100/47
HR= 70. Provider said to hold coreg and lisinopril for now and continue to monitor.
[2024-07-10 23:51] LABS: Glucose - Point of Care 136 mg/dl (70-99)
[2024-07-11 06:09] LABS: Glucose - Point of Care 123 mg/dl (70-99)
[2024-07-11] MEDS: SYNTHROID 200 MCG PO (06:14)
--- NOTE | 2024-07-11 07:29 | W.PN.HOSP.TC ---
Today's Communication/Plan
-
Diet advance as per surgery
cont abx
hold Eliquis
resume Lasix
Low dose Lantus for tonight
cont sliding scale glycemic control
Assessment / Plan
Assessment / Plan
Physical Exam
General: Conversant, no acute distress, appears comfortable at this time
HEENT: NormoCephalic, Anicteric, Moist mucous membranes and Atraumatic
Respiratory: Clear
Cardiac: S1/S2 and Irregular Rhythm
GI: Soft and Tender bowel sounds present
Musculoskeletal: No Clubbing, No Cyanosis, trace lower ext edema b/l
Skin: Warm
Neuro: AO x 3
Psych: Calm
69-year-old with multiple comorbidities who is here for abdominal pain and was found to have inflammatory changes in the proximal ileum consistent with likely infectious or ischemic process. No obstruction
PLAN:
1. Ileitis - Presumed inflammatory or ischemic etiology. Denies recent chemotherapy for HCC. Non-toxic appearing and hemodynamically stable. Leukocytosis and moderate to severe pain with vomiting. No obstruction on CT.
Possibly related to hernia
-GI Surgery evals appreciated NGT tube discontinued 07/10 diet advanced
- cont IV ceftriaxone/flagyl
- gentle IV hydration completed
- pain control and antiemetics
2. DM II
- lantus held while npo, diet advanced as above, resumed low dose 5U HS for now, likely titrate up as oral intake improves
- cont sliding scale
3. AFIb
- continue carvedilol
-Eliquis placed on hold as per surgery
4. CHF
- home lasix briefly held while NPO since resumed
- continue imdur, lisinopril
- weight daily
6. COPD - stable
- continue home inhalers
7. hypothyroid
- continue home levothyroxine
DDVT PPx - on apixaban
Code statu s- Full Code
I spent a total of 50 minutes with the patient or on the floor. More than 50% of this time involved counseling and coordination of care.
Anticipated Discharge: 24 - 48 hours
Subjective/Interval History
-
Date of Service: July 11, 2024
Pain resolved. Patient reports feeling well. Denies nausea. Endorses flatus.
Objective Data
-
Labs:
Laboratory Results
07/11/24
05:41
WBC Pending
Hgb Pending
Hct Pending
Plt Count Pending
Sodium Pending
Potassium Pending
Chloride Pending
Carbon Dioxide Pending
BUN Pending
Creatinine Pending
Glucose Pending
Calcium Pending
Vital Signs:
Vital Signs
Temp Pulse Resp BP Pulse Ox
98.6 F 90 16 119/69 94
07/10/24 23:18 07/10/24 23:18 07/10/24 23:18 07/10/24 23:18 07/10/24 23:18
I&O
07/10/24 07/11/24 07/12/24
06:59 06:59 06:59
Intake Total 2445 / 2445 1560 / 1560
Output Total 1220 / 1220 960 / 960
Balance 1225 / 1225 600 / 600
[2024-07-11 07:45] VITALS: BP 146/78
--- NOTE | 2024-07-11 07:45 | W.PN.GS2 ---
Addendum entered and electronically signed by Ok Salazar MD 07/11/24 11:22:
Patient seen and examined independently of resident. Agree with documented progress note.
Patient states he feels much better this a.m. essentially had resolution of symptoms abruptly overnight.
Has not required any narcotic pain medication today
Abdominal pain reportedly gone.
No nausea
Tolerating clears, passing flatus
AFVSS
NAD AAOx3 sitting up comfortably in chair at hospital bed side
ABD: Soft, obese, nontender on palpation, no rebound rigidity or guarding
A/P: 69-year-old male with probable partial small bowel obstruction and chronic ventral incisional hernia
Clinically improving
Continue dietary advancement -full liquids to low residue in evening for dinner
MiraLAX tomorrow a.m.
Hold therapeutic anticoagulation today but if tolerates dinner okay to start tomorrow a.m.
Original Note:
Today's Communication / Plan
-
Advance diet to Fulls. C/w IV abx.
Assessment / Plan
-
Patient is a 69 yo M p/w symptomatic ventral incisional hernia
AFVSS, Leukocytosis resolved. Abdominal exam unremarkable. Clinically improving.
- Can advance diet to full liquids if tolerated for breakfast with low residue for lunch/dinner
- c/w IV Zosyn
- Cont to hold eliquis (last dose 07/09)
- Serial abd exams
- OOBEM
Subjective Data
-
Feeling much better this morning, reports pain has disappeared since last night. He tolerated the CLD for dinner. He has had no new fevers or chills overnight. He is still passing quite a bit of gas but has not had a bm thus far.
Objective Data
-
Intake and Output
07/10/24 07/11/24 07/12/24
06:59 06:59 06:59
Intake Total 2445 / 2445 1560 / 1560
Output Total 1220 / 1220 960 / 960
Balance 1225 / 1225 600 / 600
Intake:
Oral fluids 480 / 480 720 / 720
IV fluids (Total) 1190 / 1190 840 / 840
Amount instilled into GI Tube ( 775 / 775
Total)
[place] Sump 775 / 775
Output:
Gastrointestinal tube output ( 350 / 350
Total)
[place] Sump 350 / 350
Urine, Voided 870 / 870 960 / 960
Other:
Number of approximated MODERATE 3
amounts of urine
Vital Signs
Temp Pulse Resp BP Pulse Ox
98.6 F 90 16 119/69 94
07/10/24 23:18 07/10/24 23:18 07/10/24 23:18 07/10/24 23:18 07/10/24 23:18
Calcium 9.0 mg/dl (8.4-10.2) 07/10/24 06:19
Total Bilirubin 1.0 mg/dl (0.2-1.3) 07/08/24 17:13
AST 29 U/L (17-59) 07/08/24 17:13
ALT 21 U/L (0-50) 07/08/24 17:13
Alkaline Phosphatase 110 U/L (38-126) 07/08/24 17:13
Total Protein 7.7 g/dl (6.3-8.2) 07/08/24 17:13
Albumin 4.5 g/dl (3.5-5.0) 07/08/24 17:13
Physical Exam
-
General: NAD. Resting comfortably. Non-toxic in appearance.
Abdominal: Soft, obese abdomen. NTTP. Tympanitic to percussion. Difficult to ascertain presence/absence of hernia due to body habitus.
[2024-07-11 07:50] LABS: Blood Urea Nitrogen 32 mg/dl (9-20); Carbon Dioxide 28 mmol/L (22-30); Chloride 105 mmol/L (98-107); Estimated Creatinine Clearance 89 ml/min; Glucose 118 mg/dl (70-99); Potassium 3.4 mmol/L (3.5-5.1); Sodium 145 mmol/L (135-145); eGFR > 60.00
[2024-07-11 07:54] LABS: Hematocrit 45.5 % (39.0-52.0); Hemoglobin 14.4 g/dL (13.0-18.0); Mean Corp Hgb Conc. 31.6 g/dL (33.0-37.0); Mean Corpuscular Hgb 33.5 pg (27.0-31.0); Mean Corpuscular Volume 105.8 fL (80.0-94.0); Red Cell Dist. Width 14.6 % (11.5-14.5); White Blood Cell Count 10.3 10^3/uL (4.8-10.8)
[2024-07-11 07:58] LABS: Glucose - Point of Care 139 mg/dl (70-99)
[2024-07-11] MEDS: COREG 12.5 MG PO ×2 (09:16→21:26)
[2024-07-11] MEDS: ZESTRIL 40 MG PO ×2 (09:16→21:26)
[2024-07-11] MEDS: IMDUR (EXTENDED RELEASE) 30 MG PO (09:16)
[2024-07-11] MEDS: NSS (PRESERVATIVE FREE) 10 ML IV (09:17)
[2024-07-11] MEDS: PROTONIX IV 40 MG IV (09:17)
[2024-07-11] MEDS: FLAGYL 500 MG PO ×3 (09:17→23:29)
[2024-07-11] MEDS: NSS IV (09:21)
[2024-07-11 11:56] LABS: Glucose - Point of Care 206 mg/dl (70-99)
[2024-07-11] MEDS: NOVOLOG FLEXPEN-MODERATE RESISTANCE 3 UNITS SC (12:08)
[2024-07-11] MEDS: KCL 40 MEQ PO (13:52)
--- NOTE | 2024-07-11 13:54 | CM ---
Addendum entered by Harriet Mota RN 07/11/24 14:55:
IMM reviewed and placed on chart.
Original Note:
Reviewed the chart notes. Patient's diet advanced to low residual. CM continues to be available to patient/family and is monitoring medical plan for needs at discharge.
Plan: Discharge to home when medically stable. No anticipated needs identified at this time.
[2024-07-11 15:40] VITALS: BP 110/53
[2024-07-11 17:03] LABS: Glucose - Point of Care 164 mg/dl (70-99)
[2024-07-11] MEDS: NOVOLOG FLEXPEN-MODERATE RESISTANCE 1 UNITS SC (17:05)
[2024-07-11 21:21] LABS: Glucose - Point of Care 163 mg/dl (70-99)
[2024-07-11] MEDS: LASIX PO ×2 (21:25→21:31)
--- NOTE | 2024-07-11 21:25 | PTCARENOTE ---
Pt refused lasix 80 mg at bedtime stating 'I dont want to be up all night'. Despite medication education provided to pt, continued to refuse.
[2024-07-11] MEDS: LANTUS 0.05 UNITS SC (21:26)
[2024-07-11] MEDS: ROBITUSSIN AC 5 ML PO (22:05)
[2024-07-11 23:10] VITALS: BP 123/56
[2024-07-11] MEDS: ROCEPHIN 1000 MG IV (23:26)
[2024-07-11] MEDS: STERILE WATER FOR INJECTION 10 ML IV (23:27)
[2024-07-12 05:39] VITALS: BMI 42.2
[2024-07-12] MEDS: SYNTHROID 200 MCG PO (06:38)
[2024-07-12] MEDS: TYLENOL 650 MG PO (06:40)
--- NOTE | 2024-07-12 07:22 | W.PN.HOSP.TC ---
Addendum entered and electronically signed by Srinivas Leiva MD 07/12/24 16:49:
Chronic Heart Failure Preserved Ejection Fraction
Addendum entered and electronically signed by Srinivas Leiva MD 07/12/24 16:47:
Mild Hypokalemia repleted
Original Note:
Today's Communication/Plan
-
discharge
Assessment / Plan
Assessment / Plan
Physical Exam
General: Conversant, no acute distress, appears comfortable at this time
HEENT: NormoCephalic, Anicteric, Moist mucous membranes and Atraumatic
Respiratory: Clear
Cardiac: S1/S2 and Irregular Rhythm
GI: Soft, Tenderness mild, bowel sounds present
Musculoskeletal: No Clubbing, No Cyanosis, trace lower ext edema b/l
Skin: Warm
Neuro: AO x 3
Psych: Calm
69-year-old with multiple comorbidities who is here for abdominal pain and was found to have inflammatory changes in the proximal ileum consistent with likely infectious or ischemic process. No obstruction
PLAN:
#Ileitis Possibly related to hernia
#Possible Partial Small Bowel Obstruction contributing
-GI Surgery evals appreciated NGT tube discontinued 07/10 diet advanced tolerating
- IV ceftriaxone/flagyl completed no need for further abx at this time
- gentle IV hydration completed
- pain control and antiemetics
2. DM II
- lantus held while npo, diet advanced as above, resumed low dose 5U HS for now, likely titrate up as oral intake improves
- cont sliding scale
-ok to resume home diabetic medication regimen on discharge
3. AFIb
- continue carvedilol
-Eliquis resumed
4. CHF
- home lasix briefly held while NPO since resumed
- continue imdur, lisinopril
- weight daily
6. COPD - stable
- continue home inhalers
7. hypothyroid
- continue home levothyroxine
DDVT PPx - on apixaban
Code statu s- Full Code
Medically stable for discharge home with outpatient follow up recommendations
Total Time Preparing Discharge ___40____ minutes including examination of the patient, summary of the hospital stay, instructions for continuing care to all relevant caregivers; and preparation of discharge records, prescriptions, and referral
forms if necessary.
Anticipated Discharge: Today
Subjective/Interval History
-
Date of Service: July 12, 2024
No acute distress sitting up comfortably in chair. Pain resolved. Tolerating diet. Eager to go home. Denies new acute issues at this time.
Objective Data
-
Labs:
Laboratory Results
07/12/24
06:34
WBC Pending
Hgb Pending
Hct Pending
Plt Count Pending
Sodium Pending
Potassium Pending
Chloride Pending
Carbon Dioxide Pending
BUN Pending
Creatinine Pending
Glucose Pending
Calcium Pending
Vital Signs:
Vital Signs
Temp Pulse Resp BP Pulse Ox
98.1 F 59 16 123/56 95
07/11/24 23:10 07/11/24 23:10 07/11/24 23:10 07/11/24 23:10 07/11/24 23:10
I&O
07/11/24 07/12/24 07/13/24
06:59 06:59 06:59
Intake Total 1560 / 1560 1140 / 1140
Output Total 960 / 960
Balance 600 / 600 1140 / 1140
[2024-07-12 07:45] VITALS: BP 143/78
[2024-07-12 07:47] LABS: Glucose - Point of Care 163 mg/dl (70-99)
[2024-07-12 08:11] LABS: Blood Urea Nitrogen 21 mg/dl (9-20); Calcium 8.9 mg/dl (8.4-10.2); Carbon Dioxide 29 mmol/L (22-30); Chloride 105 mmol/L (98-107); Estimated Creatinine Clearance > 125 ml/min; Glucose 148 mg/dl (70-99); Magnesium 2.3 mg/dl (1.6-2.3); Phosphorus 2.6 mg/dl (2.5-4.5); Potassium 3.9 mmol/L (3.5-5.1); Sodium 144 mmol/L (135-145); eGFR > 60.00
[2024-07-12] MEDS: NOVOLOG FLEXPEN-MODERATE RESISTANCE 1 UNITS SC ×2 (08:14→12:11)
[2024-07-12] MEDS: LASIX 80 MG PO (08:14)
[2024-07-12] MEDS: FLAGYL 500 MG PO (08:14)
[2024-07-12] MEDS: ZESTRIL 40 MG PO (08:14)
[2024-07-12] MEDS: COREG 12.5 MG PO (08:15)
[2024-07-12] MEDS: NSS (PRESERVATIVE FREE) 10 ML IV (08:15)
[2024-07-12] MEDS: IMDUR (EXTENDED RELEASE) 30 MG PO (08:15)
[2024-07-12] MEDS: PROTONIX IV 40 MG IV (08:16)
[2024-07-12 08:41] LABS: TSH Reflex To Free T4 4.67 uIU/ml (0.47-4.68)
[2024-07-12 08:50] LABS: Hematocrit 42.9 % (39.0-52.0); Hemoglobin 13.7 g/dL (13.0-18.0); Mean Corp Hgb Conc. 31.9 g/dL (33.0-37.0); Mean Corpuscular Hgb 32.9 pg (27.0-31.0); Mean Corpuscular Volume 103.1 fL (80.0-94.0); Mean Platelet Volume 10.6 fL (7.4-10.4); Platelet Count 180 10^3/uL (130-400); Red Blood Cell Count 4.16 10^6/uL (4.70-6.10); Red Cell Dist. Width 14.6 % (11.5-14.5); White Blood Cell Count 8.1 10^3/uL (4.8-10.8)
--- NOTE | 2024-07-12 08:50 | W.PN.GS2 ---
Addendum entered and electronically signed by Jens Webb MD 07/12/24 10:48:
I saw and examined the patient.
The resident's note was reviewed and I agree with the note.
Comment: Feeling well, back to baseline. Exam benign. [place] diet. Pain resolved. OK for DC home. No need for further abx. OK to retstart eliquis.
Original Note:
Today's Communication / Plan
-
`
Assessment / Plan
-
Patient is a 69 yo M who p/w symptomatic ventral incisional hernia & probable SBO
AFVSS, Leukocytosis resolved. Abdominal exam unremarkable. Clinically improving.
Patient is tolerating LRD without complications. He feels well and back to baseline. He is ambulating, having bowel movements and passing flatus.
OK to restart Eliquis as no surgical intervention is planned. OK to discharge from surgical standpoint. No need for PO abx.
Subjective Data
-
Feeling great. Had 2 large bowel movements last night. Tolerating low residue diet well. No new nausea, vomiting, abdominal pain, fevers, chills.
Objective Data
-
Intake and Output
07/11/24 07/12/24 07/13/24
06:59 06:59 06:59
Intake Total 1560 / 1560 1140 / 1140
Output Total 960 / 960
Balance 600 / 600 1140 / 1140
Intake:
Oral fluids 720 / 720 900 / 900
IV fluids (Total) 840 / 840 240 / 240
Output:
Urine, Voided 960 / 960
Other:
Number of approximated MODERATE 3 2
amounts of urine
Vital Signs
Temp Pulse Resp BP Pulse Ox
98.1 F 59 16 123/56 95
07/11/24 23:10 07/11/24 23:10 07/11/24 23:10 07/11/24 23:10 07/11/24 23:10
Lab Results
07/12/24 06:34
07/12/24 06:34
Calcium 8.9 mg/dl (8.4-10.2) 07/12/24 06:34
Phosphorus 2.6 mg/dl (2.5-4.5) 07/12/24 06:34
Magnesium 2.3 mg/dl (1.6-2.3) 07/12/24 06:34
Total Bilirubin 1.0 mg/dl (0.2-1.3) 07/08/24 17:13
AST 29 U/L (17-59) 07/08/24 17:13
ALT 21 U/L (0-50) 07/08/24 17:13
Alkaline Phosphatase 110 U/L (38-126) 07/08/24 17:13
Total Protein 7.7 g/dl (6.3-8.2) 07/08/24 17:13
Albumin 4.5 g/dl (3.5-5.0) 07/08/24 17:13
Physical Exam
-
General: NAD. AAOx3
Abdominal: Soft, obese abdomen. Mild tenderness in the suprapubic area, which is unchanged from baseline. No rebound or guarding.
--- NOTE | 2024-07-12 10:19 | CM ---
Reviewed the chart notes and spoke with the patient at the bedside. Patient tolerating a low residual diet. CM continues to be available to patient/family and is monitoring medical plan for needs at discharge.
Plan: Discharge to home today. No anticipated needs identified at this time. The patient's spouse will provide transportation home.
[2024-07-12] MEDS: ELIQUIS 5 MG PO (10:47)
[2024-07-12 12:11] LABS: Glucose - Point of Care 199 mg/dl (70-99)
--- NOTE | 2024-07-12 12:56 | W.DCSUMMARY ---
Discharge Summary
Discharge Data
Date of Admission: 07/08/24
Date of Discharge: 07/12/24
-
Pending Results: No
Discharge Plan
-
Patient Disposition: Home (Routine Discharge)
Discharge Diagnosis/Procedures: Ileitis Possibly related to hernia
Possible Partial Small Bowel Obstruction contributing since resolved
Diabetes
Atrial Fibrillation
Heart Failure with Preserved Ejection Fraction
COPD
Hypothyroid
Condition: Fair
Diet: Low Residue
Additional Diets: Continue Low Residue diet for 1 week then advance as tolerated
Activity: As tolerated
Driving Restrictions: As prior to admission
Bathing Restrictions: None
Specialty Instructions: Weigh Daily- Call MD for wt gain/loss 3 lbs overnight/5 lbs in 1 week
Activity Restrictions/Additional Instructions:
Please follow up with primary care provider in 1 week of discharge, surgeon in 1 month of discharge, and continue follow up with all healthcare providers involved in your care.
Referrals:
Russell Jesus MD [Active] - in one month
Russell Nunez PA-C [Family Provider] - in one week
Prescriptions:
Continued
isosorbide mononitrate 30 mg tablet extended release 24 hr
30 mg PO DAILY
levothyroxine 200 mcg tablet
200 mcg PO DAILY
furosemide 80 MG tablet
80 mg PO BID
fluticasone propion-salmeterol [Advair Diskus] 250-50 mcg/dose Blister With Device
2 inh INHALATION R BIDPRN PRN (Reason: sob/wheezing)
lisinopril 40 mg Tablet
40 mg PO BID
Eliquis 5 mg Tablet
5 mg PO BID
carvedilol 25 mg tablet
12.5 mg PO BID Qty: 0 0RF
albuterol sulfate 90 mcg/actuation Hfa Aerosol Inhaler
2 puff INHALATION R Q6HPRN PRN (Reason: sob/wheezing)
insulin glargine [Lantus Solostar U-100 Insulin] 100 unit/mL (3 mL) insulin pen
38 unit SC HS
ipratropium-albuterol 0.5 mg-3 mg(2.5 mg base)/3 mL solution for nebulization
3 ml inhalation R TIDPRN PRN (Reason: sob/wheezing)
Discharge Orders:
Discharge Patient (As Directed); Ordered 07/12/24
Ordered By: Srinivas Leiva
Discharge Date and Time
Print Language: KOREAN
[2024-07-12 13:36] VITALS: BP 128/58
--- NOTE | 2024-07-12 13:37 | PN.CDI ---
CDI
- -
CDI:
Physician Documentation Request
Admit Date: 07/08/24 23:55
Dear Doctor Cali,
Discharge Summary: 'Heart Failure with Preserved Ejection Fraction'
Clarify which of the following accurately represents the acuity of the heart failure. Possible options might include:
____ Chronic
____ Other
____ Unable to determine
Use of terms such as suspected, likely, concern for, or probable (associated with a specific diagnosis that is being evaluated, monitored, or treated as if it exists) are acceptable and can be coded in the inpatient setting, when documented at the
time of discharge.
Thank you,
Lynsey Nielson RN, BSN
CDI Specialist
Available via [place] text
Please use your independent medical judgment in providing your response.
--- NOTE | 2024-07-12 13:43 | PN.CDI ---
CDI
- -
CDI:
Physician Documentation Request
Admit Date: 07/08/24 23:55
Dear Doctor Cali,
Patient admitted for ileitis.
07/11 Potassium level: 3.4
07/11 Potassium chloride 40 meq PO administered
Based on the above, could you clarify in the progress notes, the appropriate diagnosis, if significant, that supports the above abnormalities and additional evaluation, monitoring and/or treatment rendered:
Hypokalemia
Abnormal lab value insignificant
Other
Use of terms such as suspected, likely, concern for, or probable (associated with a specific diagnosis that is being evaluated, monitored, or treated as if it exists) are acceptable and can be coded in the inpatient setting, when documented at the
time of discharge.
Thank you,
Lynsey Nielson RN, BSN
CDI Specialist
Available via [place] text
Please use your independent medical judgment in providing your response.
== END 2024-07-12 14:43 | disposition home or self-care (01) | DRG 394 ==
LOC: 2 NORTH 23:55
PROVIDERS: Nurse Practitioner Family; Physician Assistant Medical; ADMITTING PHYSICIAN Internal Medicine; ATTENDING PHYSICIAN Internal Medicine; CONSULT PHYSICIAN Internal Medicine Gastroenterology; CONSULT PHYSICIAN Surgery; EMERGENCY PHYSICIAN Emergency Medicine; FAMILY PHYSICIAN Physician Assistant Medical
DX: K43.6 Other and unspecified ventral hernia with obstruction, without gangrene (principal); C22.0 Liver cell carcinoma; I50.32 Chronic diastolic (congestive) heart failure; Z68.41 Body mass index [BMI] 40.0-44.9, adult; K52.9 Noninfective gastroenteritis and colitis, unspecified; E11.9 Type 2 diabetes mellitus without complications; E78.00 Pure hypercholesterolemia, unspecified; E03.9 Hypothyroidism, unspecified; F17.210 Nicotine dependence, cigarettes, uncomplicated; I11.0 Hypertensive heart disease with heart failure; I48.91 Unspecified atrial fibrillation; J44.89 Other specified chronic obstructive pulmonary disease; K74.60 Unspecified cirrhosis of liver; I27.81 Cor pulmonale (chronic); E66.01 Morbid (severe) obesity due to excess calories; E87.6 Hypokalemia; Z99.81 Dependence on supplemental oxygen; Z90.49 Acquired absence of other specified parts of digestive tract; Z79.899 Other long term (current) drug therapy; Z79.890 Hormone replacement therapy; Z79.4 Long term (current) use of insulin; Z79.01 Long term (current) use of anticoagulants
CPT/HCPCS: 71046; 74177; 80048; 80053; 82607; 82746; 82962; 83540; 83550; 83605; 83690; 83735; 84100; 84443; 85025; 85027; 96374; 96375; 99285; 99406; Q9967

== ENCOUNTER 2024-12-15 12:16 | Emergency (ER) | payer MEDICARE, SELFPAY ==
[2024-12-15 12:26] VITALS: BP 184/96
--- NOTE | 2024-12-15 13:44 | ED.GENMED ---
History of Present Illness
General
Chief Complaint: Musculo-Skeletal Complaint
Time Seen by Provider: 12/15/24 13:19
History of Present Illness
History of Present Illness:
69-year-old male presents to the emergency department for evaluation of right hand pain after an injury yesterday. States that a long from [employer] tree fell onto the hand. Pain was worsening overnight prompting from the ER today. No distal
paresthesias
Past History
Past History
ED Past Medical History: Arrthythmia, Cancer, CHF, HTN and IDDM
ED Past Surgical History: Appendectomy, Cholecystectomy and Orthopedic
Social History
Tobacco: Former smoker
Alcohol: Former
Personal:
Living: with family
Employment: Employed
Review of Systems
Review of Systems
Allergies reviewed?: Yes
All Other Systems: ROS reviewed and negative except as documented in HPI and ROS
Phy Exam
Physical Exam
Physical Exam:
GEN: Well appearing, NAD, WDWN
HEENT: Oral mucosa moist, no scleral icterus
Cardiac: Regular rate
Lung: No respiratory distress, no tachypnea
MSK: Swelling and ecchymosis to the right hand just proximal to the palmar surface of the fourth and fifth MCP joints, mild swelling and bruising to the proximal aspect of the fourth and fifth digits. Limited range of motion noted
Skin: Good color, no pallor or jaundice, no rashes
Neuro: AO x3, moves all extremities freely
Psych: Calm, cooperative
Course
Orders/Labs/Results
Orders:
Orders
12/15/24 12:25
Hand, Right 3 View [CR Hand - Right Min 3 Views] Urgent
Comment:
Reason For Exam: pain, trauma
12/15/24 13:46
Oxycodone/Acetaminophen [Percocet 5/325] 1 tablet PO NOW STA
Vital Signs
Initial and Last Documented VS:
Initial Vital Signs
Temp Pulse Resp Pulse Ox
97.8 F 59 18 98
12/15/24 12:25 12/15/24 12:25 12/15/24 12:25 12/15/24 12:25
Last Documented Vital Signs
Temp Pulse Resp BP Pulse Ox
97.8 F 61 16 169/89 97
12/15/24 12:25 12/15/24 14:20 12/15/24 14:20 12/15/24 14:20 12/15/24 14:20
MDM/Problems Addressed
MDM/Problems Addressed:
Patient placed in ulnar gutter splint will refer to orthopedics as an outpatient
*Critical Care Note
Total Time (30-74mins, 75-104mins- exclusive of procedures): Not Applicable
ED Attending Note
-
Portions of this chart may have been created with voice recognition software.� Occasional wrong word or��sound alike� substitutions may have occurred due to the inherent limitations of voice recognition software.
Discharge Plan
Departure
Patient Disposition: Home (Routine Discharge)
Date of Disposition: 12/15/24
Time of Disposition: 14:04
Patient with high blood pressure during this ER visit?: No
Discharge Problem:
Fracture of finger
Instructions: Finger Fracture ED
Prescriptions:
New
oxycodone-acetaminophen [Percocet] 5-325 mg tablet
1 tab PO Q6HPRN PRN (Reason: pain) Qty: 10 0RF
No Action
isosorbide mononitrate 30 mg tablet extended release 24 hr
30 mg PO DAILY
levothyroxine 200 mcg tablet
200 mcg PO DAILY
furosemide 80 MG tablet
80 mg PO BID
fluticasone propion-salmeterol [Advair Diskus] 250-50 mcg/dose Blister With Device
2 inh INHALATION R BIDPRN PRN (Reason: sob/wheezing)
lisinopril 40 mg Tablet
40 mg PO BID
Eliquis 5 mg Tablet
5 mg PO BID
carvedilol 25 mg tablet
12.5 mg PO BID Qty: 0 0RF
albuterol sulfate 90 mcg/actuation Hfa Aerosol Inhaler
2 puff INHALATION R Q6HPRN PRN (Reason: sob/wheezing)
insulin glargine [Lantus Solostar U-100 Insulin] 100 unit/mL (3 mL) insulin pen
38 unit SC HS
ipratropium-albuterol 0.5 mg-3 mg(2.5 mg base)/3 mL solution for nebulization
3 ml inhalation R TIDPRN PRN (Reason: sob/wheezing)
Referrals:
Russell Nunez PA-C [Family Provider] -
Edwar Tan MD [Active] -
Interventions
Interventions:
*Risk Screen - Suicide Last Done: 12/15/24 14:20
*General Assessment Last Done: 12/15/24 14:20
*Neglect/Abuse Screening Last Done: 12/15/24 14:20
*ED- Fall Risk Assessment Last Done: 12/15/24 14:20
*ED COVID-19 Vaccine History Last Done: 12/15/24 14:20
*Nursing Disposition Last Done: 12/15/24 14:21
ED-Musculoskeletal Assessment Last Done: 12/15/24 14:20
Discharge Date and Time
Discharge Date/Time: 12/15/24 14:21
Print Language: BAHRAINI
[2024-12-15] MEDS: PERCOCET 5/325 1 TABLET PO (13:56)
[2024-12-15 14:20] VITALS: BP 169/89
== END 2024-12-15 14:21 | disposition home or self-care (01) ==
LOC: EMR 12:16
PROVIDERS: EMERGENCY PHYSICIAN Emergency Medicine; FAMILY PHYSICIAN Physician Assistant Medical
DX: S62.616A Displaced fracture of proximal phalanx of right little finger, initial encounter for closed fracture (principal); W19.XXXA Unspecified fall, initial encounter; I11.0 Hypertensive heart disease with heart failure; I50.9 Heart failure, unspecified; E11.9 Type 2 diabetes mellitus without complications; Z87.891 Personal history of nicotine dependence; Z90.49 Acquired absence of other specified parts of digestive tract
CPT/HCPCS: 99283; 29125; 73130

== ENCOUNTER 2025-09-01 13:10 | Emergency (ER) | payer MEDICARE, SELFPAY ==
[2025-09-01 13:22] VITALS: BP 190/110
[2025-09-01 13:44] LABS: Hematocrit 44.3 % (39.0-52.0); Hemoglobin 15.0 g/dL (13.0-18.0); Mean Corp Hgb Conc. 33.9 g/dL (33.0-37.0); Mean Corpuscular Volume 103.7 fL (80.0-94.0); Nucleated Red Blood Cells % 0 % (-); Platelet Count 206 10^3/uL (130-400); Red Cell Dist. Width 13.5 % (11.5-14.5)
[2025-09-01 14:01] LABS: ALT (SGPT) 24 U/L (0-50); AST (SGOT) 25 U/L (17-59); Albumin 4.0 g/dl (3.5-5.0); Alkaline Phosphatase 122 U/L (38-126); Blood Urea Nitrogen 17 mg/dl (9-20); Calcium 8.7 mg/dl (8.4-10.2); Carbon Dioxide 31 mmol/L (22-30); Chloride 100 mmol/L (98-107); Glucose 216 mg/dl (70-99); Potassium 3.8 mmol/L (3.5-5.1); Sodium 135 mmol/L (135-145); Total Protein 7.6 g/dl (6.3-8.2); eGFR > 60.00
[2025-09-01 14:47] VITALS: BP 200/121
[2025-09-01] MEDS: APRESOLINE 10 MG PO (14:57)
[2025-09-01 15:31] VITALS: BP 203/109
[2025-09-01] MEDS: ROXICODONE 5 MG PO (15:32)
--- NOTE | 2025-09-01 15:42 | ED.GENMED ---
History of Present Illness
General
Chief Complaint: Facial Problem
Time Seen by Provider: 09/01/25 14:11
History of Present Illness
History of Present Illness:
Brain is a 70-year-old male who presents complaining of front tooth pain that radiates into his mid face that has been worsening intensity over the last several weeks. He has a known front tooth fracture but is unable to see a dentist due to lack
of insurance. He is managing pain at home by taking 6 tablets of Tylenol 4 times a day. Denies any headaches, nausea, vomiting, fever, chills.
Past History
Past History
ED Past Medical History: Arrthythmia, Cancer, CHF, HTN and IDDM
ED Past Surgical History: Appendectomy, Cholecystectomy and Orthopedic
Social History
Tobacco: Former smoker
Alcohol: Former
Personal:
Living: with family
Employment: Employed
Phy Exam
General Physical Exam
General Presentation: well appearing and no apparent distress
General Skin: warm and dry
General Habitus: normal
General Mental: alert
General Hydration: appears well hydrated
ENT Exam
ENT Exam: EOMI, pharynx normal, neck supple and normocephalic
Additional ENT: Left first bicuspid ingram with associated purulent drainage
Eye Exam
Eye Exam: PERRL, cornea clear and conjunctiva normal
Cardiovascular Exam
Cardiovascular Exam: regular rate/rhythm, no edema, no murmur and normal peripheral pulses
Pulmonary Exam
Pulmonary Exam: lungs clear, no respiratory distress, no rales, no crackles, no rhonchi, no stridor, no wheezing and no cough
Gastrointestinal Exam
Gastrointestinal Exam: normal bowel sounds, non tender, soft, no organomegaly, no pulsatile mass and non distended
Neurological Exam
Neurological Exam: alert, oriented x3, no motor deficits and speech normal
Musculoskeletal Exam
Musculoskeletal Exam: full ROM and no edema
Skin Exam
Skin Exam: normal color, warm/dry, no rash and no petechia
Psychiatric Exam
Psychiatric Exam: normal mood/affect
Course
Orders/Labs/Results
Orders:
Orders
09/01/25 13:34
Complete Blood Count/With Diff Urgent
Comprehensive Metabolic Panel Urgent
09/01/25 14:46
HydrALAZINE [Apresoline] 10 mg PO NOW STA
09/01/25 15:22
Oxycodone [Roxicodone] 5 mg PO NOW STA
Abnormal Lab Results
09/01/25
13:34
RBC 4.27 L 10^6/uL
(4.70-6.10)
MCV 103.7 H fL
(80.0-94.0)
MCH 35.1 H pg
(27.0-31.0)
Abs Immat Gran (auto) 0.1 H 10^3/uL
(0-0.05)
Absolute Neuts (auto) 7.7 H 10^3/uL
(1.4-6.5)
Absolute Lymphs (auto) 1.1 L 10^3/uL
(1.2-3.4)
Absolute Monos (auto) 0.8 H 10^3/uL
(0.1-0.6)
Immature Gran % 1.1 H %
(0-0.5)
Neutrophils % 78.0 H %
(42.2-75.2)
Lymphocytes % 11.1 L %
(20.5-51.1)
Carbon Dioxide 31 H mmol/L
(22-30)
Glucose 216 H mg/dl
(70-99)
09/01/25 13:34
09/01/25 13:34
Vital Signs
Initial and Last Documented VS:
Initial Vital Signs
Temp Pulse Resp BP Pulse Ox
37.1 C 65 16 190/110 97
09/01/25 13:22 09/01/25 13:22 09/01/25 13:22 09/01/25 13:22 09/01/25 13:22
Last Documented Vital Signs
Temp Pulse Resp BP Pulse Ox
37.1 C 57 20 184/99 96
09/01/25 13:22 09/01/25 14:47 09/01/25 14:47 09/01/25 15:56 09/01/25 14:47
MDM/Problems Addressed
Differential Diagnosis Includes:
Left first bicuspid appears to be infected. Patient was previously told this and has not follow-up with dentist due to lack of insurance. Facial pain is likely related to this tooth infection. Prescription for antibiotics sent to his pharmacy as
well as prescription for pain medication. Patient has a history of stage IV liver cancer and therefore I advised him not to take Tylenol as he is currently taking over 4 g daily. Option for short course of oxycodone sent to his pharmacy. Provided
him with information for the [facility] free clinic where he should follow-up for dental and primary care.
While in the ER he was hypertensive to over 200 systolic and received 10 mg p.o. hydralazine as well as 5 mg of oxycodone with improvement in his blood pressure down to 180 systolic. He should follow-up with primary care provider regarding his
chronic hypertension.
Return precautions discussed
*Pulse Oximetry
SaO2: 96
Oxygen Mode of Delivery: Room air
Patient hypoxic: no
*Critical Care Note
Total Time (30-74mins, 75-104mins- exclusive of procedures): Not Applicable
ED Attending Note
-
Portions of this chart may have been created with voice recognition software.� Occasional wrong word or��sound alike� substitutions may have occurred due to the inherent limitations of voice recognition software.
Discharge Plan
Departure
Patient Disposition: Home (Routine Discharge)
Date of Disposition: 09/01/25
Time of Disposition: 14:30
Patient with high blood pressure during this ER visit?: No
Discharge Problem:
Infected tooth, Sinus pain, stage 4 liver cancer
Instructions: Dental pain - ED (DC), Dental abscess - ED (DC)
Prescriptions:
New
amoxicillin-pot clavulanate [Augmentin] 500-125 mg tablet
1 tab PO BID 10 Days Qty: 20 0RF
oxycodone 5 mg tablet
5 mg PO Q6H PRN (Reason: severe pain) Qty: 14 0RF
No Action
isosorbide mononitrate 30 mg tablet extended release 24 hr
30 mg PO DAILY
levothyroxine 200 mcg tablet
200 mcg PO DAILY
furosemide 80 MG tablet
80 mg PO BID
fluticasone propion-salmeterol [Advair Diskus] 250-50 mcg/dose Blister With Device
2 inh INHALATION R BIDPRN PRN (Reason: sob/wheezing)
lisinopril 40 mg Tablet
40 mg PO BID
Eliquis 5 mg Tablet
5 mg PO BID
carvedilol 25 mg tablet
12.5 mg PO BID Qty: 0 0RF
albuterol sulfate 90 mcg/actuation Hfa Aerosol Inhaler
2 puff INHALATION R Q6HPRN PRN (Reason: sob/wheezing)
insulin glargine [Lantus Solostar U-100 Insulin] 100 unit/mL (3 mL) insulin pen
38 unit SC HS
ipratropium-albuterol 0.5 mg-3 mg(2.5 mg base)/3 mL solution for nebulization
3 ml inhalation R TIDPRN PRN (Reason: sob/wheezing)
oxycodone-acetaminophen [Percocet] 5-325 mg tablet
1 tab PO Q6HPRN PRN (Reason: pain) Qty: 10 0RF
Referrals:
[facility]
Activity Restrictions/Additional Instructions:
Please follow-up with a dentist within the next 2 weeks as your tooth does appear infected and may need to be removed. Return to the ER for fevers, chills, worsening pain not improved after several days of antibiotics.
Interventions
Interventions:
*Risk Screen - Suicide Last Done: 09/01/25 13:12
*General Assessment Last Done: 09/01/25 13:22
*Neglect/Abuse Screening Last Done: 09/01/25 13:22
[facility] [place] Fall Risk Assessment Tool Last Done: 09/01/25 14:37
*Nursing Disposition Last Done: 09/01/25 16:01
ED- Neurological Assessment Last Done: 09/01/25 14:38
ED-Skin Assessment Last Done: 09/01/25 14:38
Discharge Date and Time
Discharge Date/Time: 09/01/25 16:01
Print Language: BRAZILIAN
[2025-09-01 15:56] VITALS: BP 184/99
== END 2025-09-01 16:01 | disposition home or self-care (01) ==
LOC: EMR 13:10
PROVIDERS: Student in an Organized Health Care Education/Training Program; EMERGENCY PHYSICIAN Emergency Medicine
DX: K04.7 Periapical abscess without sinus (principal); C22.9 Malignant neoplasm of liver, not specified as primary or secondary; I11.0 Hypertensive heart disease with heart failure; I50.9 Heart failure, unspecified; E11.9 Type 2 diabetes mellitus without complications; Z59.71 Insufficient health insurance coverage; Z87.891 Personal history of nicotine dependence; Z90.49 Acquired absence of other specified parts of digestive tract
CPT/HCPCS: 99283; 80053; 85025